=== PATIENT | male | born 1950 | race Caucasian/White ===

== ENCOUNTER 2018-06-28 10:29 | Inpatient (IN) | payer OTHER ==
[~2018-06-28] VITALS: Ht 182.9 cm; Wt 94.3 kg
[2018-06-28] MEDS ORDERED: NITROGLYCERIN 0.4 MG SL TAB SL ONE (10:41)
[2018-06-28 10:46] LABS: BASOPHILS % (AUTO) 2.4 % (0.0-5.0); EOSINOPHILS % (AUTO) 0.6 % (0.0-8.0); HEMATOCRIT 29.2 % (42-54); LYMPHOCYTES % (AUTO) 12.1 % (21.0-51.0); MEAN CORPUSCULAR HEMOGLOBIN 17.9 pg (27.0-33.0); MEAN CORPUSCULAR HGB CONC 29.6 g/dL (32.0-36.0); MEAN CORPUSCULAR VOLUME 60.5 fL (79-99); NEUTROPHILS % (AUTO) 77.9 % (40.0-77.0); NUCLEATED RED BLOOD CELLS 0.1 % (0.0-0.19); PLATELET COUNT (AUTO) 355 K/uL (130-400); RED BLOOD CELL COUNT(AUTO) 4.83 MIL/uL (4.50-6.20); RED CELL DISTRIBUTION WIDTH 21.1 % (11.0-15.5); WHITE BLOOD COUNT (AUTO) 8.5 K/uL (4.8-10.8)
[2018-06-28] MEDS ORDERED: FUROSEMIDE 10 MG/ML 2ML VIAL ONE (10:50)
[2018-06-28 10:52] LABS: CREATININE 1.4 mg/dL (0.5-1.5); POTASSIUM 4.2 mmol/L (3.5-5.1)
[2018-06-28 10:56] LABS: ALBUMIN 3.4 g/dL (3.5-5.0); BILIRUBIN,TOTAL 0.7 mg/dL (0.2-1.0); TOTAL PROTEIN, SERUM 7.5 g/dL (6.0-8.3)
[2018-06-28 10:59] LABS: INR 1.05 (0.85-1.15); PARTIAL THROMBOPLASTIN TIME 25.6 SEC (26.3-35.5)
[2018-06-28] MEDS ORDERED: SODIUM CHLORIDE 0.9% 250 ML IV ONE ×2 (12:04→14:26)
[2018-06-28] MEDS ORDERED: ONDANSETRON HCL 4 MG/2 ML VIAL IV PRN (16:30)
[2018-06-28] MEDS: FUROSEMIDE 10 MG/ML 4ML VIAL IVP SCH ×2 (16:30→22:00)
[2018-06-28] MEDS ORDERED: ACETAMINOPHEN 325 MG TAB PO PRN ×2 (16:30)
[2018-06-28] MEDS ORDERED: FUROSEMIDE 10 MG/ML 4ML VIAL ONE (18:15)
[2018-06-28] MEDS ORDERED: FAMOTIDINE/PF 20 MG/2 ML VIAL IV ONE (20:58)
[2018-06-28] MEDS: FAMOTIDINE/PF 20 MG/2 ML VIAL IV SCH (21:00)
[2018-06-28 22:20] LABS: HEMATOCRIT 28.6 % (42-54)
--- NOTE | 2018-06-28 22:50 | NUR ---
PT ARRIVED TO UNIT AT THIS TIME. REPORT WAS RECEIVED BY DHARMESH MCBRIDE. PT ABLE TO AMBULATE WITHOUT ASSIST. MINIMAL SOB NOTED. STATED FEELS ALOT BETTER AFTER BEING IN THE HOSPITAL. CAME IN DUE TO SOB FOR A WEEK. PT AAO3. PERRLA. NO EDEMA. CLEAR LUNG SOUNDS. ACTIVE BOWEL SOUNDS. LAST BM WAS 06/27. TARRY STOOLS NOTED. STATES DOES ACTIVELY BLEED AT TIMES DUE DIVERTICULITIS. MEDICATIONS REPORTED.
[2018-06-28 23:05] VITALS: BP 101/70
[2018-06-29] MEDS ORDERED: CARV6.25 PO (00:28)
[2018-06-29] MEDS ORDERED: ASPI-1197 PO (00:28)
[2018-06-29] MEDS ORDERED: AMIO200T5 PO (00:28)
[2018-06-29] MEDS ORDERED: CLOP75TA32 PO (00:28)
[2018-06-29] MEDS ORDERED: FURO40TA5 PO (00:28)
[2018-06-29] MEDS ORDERED: LOSA1TAB37 PO (00:28)
[2018-06-29 01:43] LABS: HEMATOCRIT 27.7 % (42-54)
--- NOTE | 2018-06-29 01:50 | NUR ---
REPORTED HG OF 8.6 TO Bruce CHAMBERS DUE TO ACTIVE BLEEDING ORDER TO INFUSE 1 UNIT OF RBC WITH HG OVER 8.
[2018-06-29] MEDS ORDERED: SODIUM CHLORIDE 0.9% 250 ML IV ONE (02:29)
--- NOTE | 2018-06-29 03:10 | NUR ---
BLOOD TRANSFUSION STARTED AT THIS TIME. PRE TRANSFUSION VITAL SIGNS ARE WNL. VITAL SIGNS DOCUMENTED ON TRANSFUSION SHEET. PT STATES NO PAIN. MINIMAL SOB AFTER AMBULATING TO RESTROOM. VERIFIED BLOOD PRODUCTS WITH ALLISON MCBRIDE.
[2018-06-29 03:44] VITALS: BP 113/66
[2018-06-29] MEDS: FUROSEMIDE 10 MG/ML 4ML VIAL IVP SCH ×3 (05:23→22:34)
[2018-06-29 07:00] VITALS: BP 137/85
[2018-06-29 08:29] LABS: HEMATOCRIT 34.4 % (42-54)
[2018-06-29] MEDS: FAMOTIDINE/PF 20 MG/2 ML VIAL IV SCH ×2 (10:51→20:54)
[2018-06-29 11:00] VITALS: BP 107/64
[2018-06-29] MEDS: ASPIRIN 81MG TAB.CHEW PO SCH (12:09)
[2018-06-29] MEDS: AMIODARONE HCL 200 MG TABLET PO SCH (12:09)
[2018-06-29] MEDS: CARVEDILOL 6.25 MG TABLET PO SCH ×2 (12:09→20:55)
[2018-06-29] MEDS: CLOPIDOGREL BISULFATE 75 MG TAB PO SCH (12:09)
[2018-06-29] MEDS: LOSARTAN/HYDROCHLOROTHIAZIDE 50-12.5MG TABLET PO SCH (12:10)
--- NOTE | 2018-06-29 13:45 | NUR ---
DC PLAN VISITED WITH PATIENT. PATIENT LIVES WITH SPOUSE. INDEPENDENT ABLE TO PERFORM ADL'S. PATIENT HAS NO SERVICES OR DME'S. FEELS SAFE TO RETURN HOME. Addendum: 06/29/18 at 1345 by CODY BRENNAN RN CM Amended: Links added.
--- NOTE | 2018-06-29 14:26 | NUR ---
RECEIVED CALL FROM DR. Ayaan LEE, REMINDED OF CONSULT. VERBALIZED BEING AWARE OF CONSULT, WILL BE IN LATER TODAY TO SEE PT.
[2018-06-29 16:00] VITALS: BP 106/60
--- NOTE | 2018-06-29 17:40 | NUR ---
Nutrition Intervention: Nutrition consult for CHF education. Pt. admitted with Dx of Acute systolic heart failure, acute pulm. edema. Pt. reports wt. has decreased by 33#(13% of UBW) within 4 months; reports wt. decrease is due to water loss. Pt. on Heart Healthy diet with good p.o. intake, as per pt. Labs reviewed(Alb 3.4). LBM: 06/29/18. SR-21, elastic. BMI: 29.2, overweight for age. Pt. educated on Heart Failure Eating Plan and provided with education material. Pt. verbalized understanding. Recommendations: 1) Continue current diet. 2) Heart Failure Eating Plan diet education given to patient. 3) Continue to monitor pt's nutritional status. 4) Consult RD as nutrition concerns arise. Addendum: 06/29/18 at [address] Amended: Links added.
[2018-06-29 19:31] VITALS: BP 105/57
[2018-06-29] MEDS ORDERED: CARVEDILOL 6.25 MG TABLET PO SCH (21:00)
[2018-06-29 23:38] VITALS: BP 105/63
[2018-06-30 03:26] VITALS: BP 109/57
[2018-06-30 04:04] LABS: HEMATOCRIT 33.4 % (42-54); MEAN CORPUSCULAR HEMOGLOBIN 18.8 pg (27.0-33.0); MEAN CORPUSCULAR HGB CONC 30.1 g/dL (32.0-36.0); MEAN CORPUSCULAR VOLUME 62.4 fL (79-99); NUCLEATED RED BLOOD CELLS 0.1 % (0.0-0.19); PLATELET COUNT (AUTO) 328 K/uL (130-400); RED BLOOD CELL COUNT(AUTO) 5.35 MIL/uL (4.50-6.20); RED CELL DISTRIBUTION WIDTH 23.2 % (11.0-15.5); WHITE BLOOD COUNT (AUTO) 8.7 K/uL (4.8-10.8)
[2018-06-30 04:08] LABS: ALBUMIN 3.3 g/dL (3.5-5.0); CREATININE 1.4 mg/dL (0.5-1.5); MAGNESIUM 2.1 mg/dL (1.80-2.40)
[2018-06-30 04:10] LABS: % IRON SATURATION 4.5 % (30-44)
[2018-06-30] MEDS ORDERED: POTASSIUM CHLORIDE 20MEQ/100ML 100 ML IV PRN (04:30)
[2018-06-30] MEDS ORDERED: POTASSIUM CHLORIDE 10% ELIXIR 20 MEQ/15 ML UDCUP PO PRN (04:30)
[2018-06-30] MEDS ORDERED: LIDOCAINE HCL-MPF 1% 2ML VIAL IVP PRN (04:30)
[2018-06-30] MEDS: POTASSIUM CHLORIDE 20 MEQ ERTAB PO PRN ×3 (04:33→15:24)
[2018-06-30 04:52] LABS: B-TYPE NATRIURETIC PEPTIDE 513 pg/mL (0-100)
[2018-06-30 07:00] VITALS: BP 116/51
[2018-06-30] MEDS ORDERED: LOSARTAN/HYDROCHLOROTHIAZIDE 50-12.5MG TABLET PO SCH (09:00)
[2018-06-30] MEDS ORDERED: CLOPIDOGREL BISULFATE 75 MG TAB PO SCH (09:00)
[2018-06-30] MEDS ORDERED: AMIODARONE HCL 200 MG TABLET PO SCH (09:00)
[2018-06-30] MEDS ORDERED: ASPIRIN 81MG TAB.CHEW PO SCH (09:00)
[2018-06-30] MEDS ORDERED: FUROSEMIDE 40 MG TABLET PO SCH (09:00)
[2018-06-30] MEDS: ASPIRIN 81MG TAB.CHEW PO SCH (09:43)
[2018-06-30] MEDS: AMIODARONE HCL 200 MG TABLET PO SCH (09:43)
[2018-06-30] MEDS: LOSARTAN/HYDROCHLOROTHIAZIDE 50-12.5MG TABLET PO SCH (09:43)
[2018-06-30] MEDS: CLOPIDOGREL BISULFATE 75 MG TAB PO SCH (09:44)
[2018-06-30] MEDS: CARVEDILOL 6.25 MG TABLET PO SCH (09:45)
[2018-06-30] MEDS: FAMOTIDINE/PF 20 MG/2 ML VIAL IV SCH (09:45)
[2018-06-30 11:00] VITALS: BP 106/58
[2018-06-30] MEDS ORDERED: FURO40TA5 PO (12:17)
--- NOTE | 2018-06-30 15:25 | NUR ---
HL REMOVED, CATHETER INTACT. DISCHARGE INSTRUCTIONS GIVEN, VERBALIZED UNDERSTANDING.
== END 2018-06-30 15:40 | disposition home or self-care (01) | DRG 291 ==
LOC: EDH 10:29 → EDHIP 16:21 → 2AH 22:53
PROVIDERS: ADMIT Internal Medicine; ATTEND Internal Medicine
PROC: 30233N1 Transfusion of Nonautologous Red Blood Cells into Peripheral Vein, Percutaneous Approach (ICD-10-PCS; principal; 2018-06-28)
DX: I11.0 Hypertensive heart disease with heart failure (principal); J96.01 Acute respiratory failure with hypoxia; D62 Acute posthemorrhagic anemia; I50.23 Acute on chronic systolic (congestive) heart failure; I25.10 Atherosclerotic heart disease of native coronary artery without angina pectoris; I25.2 Old myocardial infarction; Z85.828 Personal history of other malignant neoplasm of skin; Z95.5 Presence of coronary angioplasty implant and graft; Z95.0 Presence of cardiac pacemaker
CPT/HCPCS: 36415; 71045; 80048; 80053; 82040; 83540; 83550; 83690; 83735; 83880; 84484; 85014; 85018; 85025; 85027; 85610; 85730; 86850; 86900; 86901; 86922; 93005; 93306; 99291; G0378; J1940; J3490; J7030; P9016

== ENCOUNTER 2018-08-04 11:56 | Emergency (ER) | payer OTHER ==
[~2018-08-04 11:56] MED LIST: AMIO200T5 PO; ASPI-1197 PO; CARV6.25 PO; CLOP75TA32 PO; FURO40TA5 PO; LOSA1TAB37 PO
[2018-08-04 12:46] LABS: BASOPHILS % (AUTO) 1.4 % (0.0-5.0); EOSINOPHILS % (AUTO) 2.4 % (0.0-8.0); HEMATOCRIT 34.3 % (42-54); LYMPHOCYTES % (AUTO) 17.7 % (21.0-51.0); MEAN CORPUSCULAR HEMOGLOBIN 20.2 pg (27.0-33.0); MEAN CORPUSCULAR HGB CONC 30.3 g/dL (32.0-36.0); MEAN CORPUSCULAR VOLUME 66.5 fL (79-99); MONOCYTES % (AUTO) 11.1 % (3.0-13.0); NEUTROPHILS % (AUTO) 67.4 % (40.0-77.0); PLATELET COUNT (AUTO) 243 K/uL (130-400); RED BLOOD CELL COUNT(AUTO) 5.15 MIL/uL (4.50-6.20); RED CELL DISTRIBUTION WIDTH 26.1 % (11.0-15.5)
[2018-08-04 12:48] LABS: CREATININE 1.2 mg/dL (0.5-1.5); POTASSIUM 3.9 mmol/L (3.5-5.1)
[2018-08-04 12:55] LABS: ALBUMIN 3.3 g/dL (3.5-5.0); BILIRUBIN,TOTAL 0.4 mg/dL (0.2-1.0); TOTAL PROTEIN, SERUM 7.2 g/dL (6.0-8.3)
[2018-08-04 13:18] LABS: B-TYPE NATRIURETIC PEPTIDE 704 pg/mL (0-100)
[2018-08-04 14:02] LABS: APPEARANCE,URINE Clear (CLEAR); BILIRUBIN,URINE Negative (NEGATIVE); COLOR,URINE Yellow (YELLOW); GLUCOSE, URINE (UA) Negative (NEGATIVE); KETONES,URINE Negative (NEGATIVE); LEUKOCYTE ESTERASE ,URINE Trace (NEGATIVE); NITRATE,URINE Negative (NEGATIVE); OCCULT BLOOD,URINE Small (NEGATIVE); PH,URINE 5.5 (5.0-8.0); PROTEIN,URINE Negative (NEGATIVE)
[2018-08-04 14:05] LABS: BACTERIA,URINE Rare /HPF (None Seen); RBC,URINE 0-1 /HPF (0-1); SQUAMOUS EPITHELIAL CELL,UR Rare /HPF (0-2); WBC,URINE 0-1 /HPF (0-1)
[2018-08-04] MEDS ORDERED: LEVOFLOXACIN 500 MG/D5W 100 ML 100 ML ONE (16:14)
[2018-08-04] MEDS ORDERED: METRONIDAZOLE 500MG/100ML BAG 100 ML ONE (16:15)
[2018-08-04] MEDS ORDERED: DiphenhydrAMINE HCL 50 MG/ML VIAL ONE (17:57)
[2018-08-04] MEDS ORDERED: DiphenhydrAMINE HCL 50 MG/ML VIAL IV PRN (18:00)
[2018-08-04] MEDS ORDERED: FUROSEMIDE 10 MG/ML 4ML VIAL IV SCH (18:15)
[2018-08-04] MEDS ORDERED: POTASSIUM CHLORIDE 20 MEQ ERTAB PO SCH (18:15)
[2018-08-04] MEDS ORDERED: FUROSEMIDE 10 MG/ML 4ML VIAL ONE (18:29)
== END 2018-08-04 19:47 | disposition home or self-care (01) ==
LOC: EDH 11:56
DX: I11.0 Hypertensive heart disease with heart failure (principal); I50.43 Acute on chronic combined systolic (congestive) and diastolic (congestive) heart failure; K57.32 Diverticulitis of large intestine without perforation or abscess without bleeding; D64.89 Other specified anemias; I25.10 Atherosclerotic heart disease of native coronary artery without angina pectoris; I25.2 Old myocardial infarction; Z88.0 Allergy status to penicillin; Z88.1 Allergy status to other antibiotic agents; Z88.8 Allergy status to other drugs, medicaments and biological substances; Z88.6 Allergy status to analgesic agent
CPT/HCPCS: 36415; 71045; 74176; 80053; 81001; 82270; 82550; 83880; 84484; 85025; 86850; 86900; 86901; 93005; 96365; 96367; 96375; 99291; J1200; J1940; J1956; J3490

== ENCOUNTER 2020-07-07 08:14 | Inpatient (IN) | payer OTHER ==
[~2020-07-07] VITALS: Ht 180.3 cm; Wt 90.6 kg
[~2020-07-07 08:14] MED LIST changes: -AMIO200T5 PO; +AMIO200T6 PO
[2020-07-07 09:26] LABS: BASOPHILS % (AUTO) 0.7 % (0.0-5.0); EOSINOPHILS % (AUTO) 0.5 % (0.0-8.0); HEMATOCRIT 34.3 % (42-54); LYMPHOCYTES % (AUTO) 4.3 % (21.0-51.0); MEAN CORPUSCULAR HEMOGLOBIN 18.3 pg (27.0-33.0); MEAN CORPUSCULAR HGB CONC 27.1 g/dL (32.0-36.0); MEAN CORPUSCULAR VOLUME 67.7 fL (79-99); MONOCYTES % (AUTO) 7.1 % (3.0-13.0); NEUTROPHILS % (AUTO) 86.9 % (40.0-77.0); PLATELET COUNT (AUTO) 206 K/uL (130-400); RED BLOOD CELL COUNT(AUTO) 5.07 MIL/uL (4.50-6.20); WHITE BLOOD COUNT (AUTO) 6.1 K/uL (4.8-10.8)
[2020-07-07 09:34] LABS: ABG HCO3 20.4 mmol/L (21.0-28.0); ABG OXYGEN SATURATION 97.4 % (95.0-99.0); ABG PCO2 29 mmHg (35-48)
[2020-07-07 09:34] LABS: CREATININE 1.3 mg/dL (0.5-1.5); POTASSIUM 4.4 mmol/L (3.5-5.1)
[2020-07-07 09:36] LABS: INR 1.11 (0.85-1.15)
[2020-07-07 09:37] LABS: PARTIAL THROMBOPLASTIN TIME 25.1 SEC (26.3-35.5)
[2020-07-07 09:38] LABS: ALBUMIN 3.2 g/dL (3.5-5.0); BILIRUBIN,TOTAL 0.7 mg/dL (0.2-1.0); TOTAL PROTEIN, SERUM 6.9 g/dL (6.0-8.3)
[2020-07-07 09:44] LABS: B-TYPE NATRIURETIC PEPTIDE 962 pg/mL (0-100)
[2020-07-07] MEDS: FUROSEMIDE 20MG VIAL (10MG/ML) IV SCH ×2 (11:30→23:30)
[2020-07-07] MEDS ORDERED: ACETAMINOPHEN 325 MG TAB PO PRN ×2 (11:30)
[2020-07-07] MEDS ORDERED: ONDANSETRON HCL 4 MG/2 ML VIAL IV PRN (11:30)
[2020-07-07] MEDS ORDERED: LACTULOSE 20 GM/30 ML UDCUP PO PRN (11:30)
[2020-07-07] MEDS ORDERED: FUROSEMIDE 40MG VIAL (10MG/ML) ONE (12:11)
[2020-07-07] MEDS ORDERED: CEFTRIAXONE SODIUM 1 GM ONE (12:11)
[2020-07-07] MEDS ORDERED: AZITHROMYCIN 500MG+NS 250ML 250 ML IV ONE (12:11)
[2020-07-07] MEDS ORDERED: SODIUM CHLORIDE 0.9% 100 ML IV ONE (12:12)
[2020-07-07 15:32] LABS: HEMATOCRIT 34.2 % (42-54)
[2020-07-07 21:05] LABS: HEMATOCRIT 32.1 % (42-54)
[2020-07-07 23:17] LABS: APPEARANCE,URINE Clear (CLEAR); BILIRUBIN,URINE Negative (NEGATIVE); COLOR,URINE Yellow (YELLOW); GLUCOSE, URINE (UA) Negative (NEGATIVE); KETONES,URINE Negative (NEGATIVE); LEUKOCYTE ESTERASE ,URINE Trace (NEGATIVE); NITRATE,URINE Negative (NEGATIVE); OCCULT BLOOD,URINE Negative (NEGATIVE); PROTEIN,URINE Negative (NEGATIVE)
[2020-07-07 23:56] LABS: BACTERIA,URINE Few /HPF (None Seen); SQUAMOUS EPITHELIAL CELL,UR 0-2 /HPF (0-2)
[2020-07-08 07:43] LABS: BASOPHILS % (AUTO) 0.7 % (0.0-5.0); EOSINOPHILS % (AUTO) 1.8 % (0.0-8.0); HEMATOCRIT 35.6 % (42-54); LYMPHOCYTES % (AUTO) 7.4 % (21.0-51.0); MEAN CORPUSCULAR HEMOGLOBIN 18.5 pg (27.0-33.0); MEAN CORPUSCULAR HGB CONC 27.2 g/dL (32.0-36.0); MEAN CORPUSCULAR VOLUME 68.1 fL (79-99); MONOCYTES % (AUTO) 9.1 % (3.0-13.0); NEUTROPHILS % (AUTO) 80.5 % (40.0-77.0); PLATELET COUNT (AUTO) 217 K/uL (130-400); RED BLOOD CELL COUNT(AUTO) 5.23 MIL/uL (4.50-6.20)
[2020-07-08 08:04] LABS: CREATININE 1.3 mg/dL (0.5-1.5); POTASSIUM 3.8 mmol/L (3.5-5.1)
[2020-07-08 08:17] LABS: B-TYPE NATRIURETIC PEPTIDE 1020 pg/mL (0-100)
[2020-07-08 08:40] VITALS: BP 113/72
[2020-07-08] MEDS: PANTOPRAZOLE 40 MG/VIAL IV SCH (09:00)
[2020-07-08] MEDS ORDERED: FURO20TA4 PO (09:46)
[2020-07-08] MEDS ORDERED: TAMS-1 PO (09:46)
[2020-07-08] MEDS ORDERED: FERR324T PO (09:46)
[2020-07-08] MEDS ORDERED: LOSA50TA64 PO (09:46)
[2020-07-08] MEDS: FUROSEMIDE 20MG VIAL (10MG/ML) IV SCH ×2 (11:25→20:25)
[2020-07-08 12:00] VITALS: BP 132/69
[2020-07-08] MEDS: METRONIDAZOLE 500MG/100ML BAG 100 ML IVPB SCH ×2 (14:39→20:25)
[2020-07-08 16:00] VITALS: BP 107/58
[2020-07-08] MEDS: CARVEDILOL 6.25 MG TABLET PO SCH (20:25)
[2020-07-08 20:44] VITALS: BP 106/68
[2020-07-08 23:49] VITALS: BP 96/54
[2020-07-09 04:03] VITALS: BP 108/64
[2020-07-09] MEDS: METRONIDAZOLE 500MG/100ML BAG 100 ML IVPB SCH ×3 (04:15→22:14)
[2020-07-09 08:00] VITALS: BP 111/67
[2020-07-09] MEDS: LEVOFLOXACIN 750 MG/D5W 150 ML 150 ML IV SCH (08:11)
[2020-07-09] MEDS: PANTOPRAZOLE 40 MG/VIAL IV SCH (08:11)
[2020-07-09] MEDS: AMIODARONE HCL 200 MG TABLET PO SCH (08:20)
[2020-07-09] MEDS: LOSARTAN 25 MG TABLET PO SCH (08:20)
[2020-07-09] MEDS: SPIRONOLACTONE 25 MG TAB PO SCH (08:20)
[2020-07-09] MEDS: CARVEDILOL 6.25 MG TABLET PO SCH ×3 (08:20→20:28)
[2020-07-09] MEDS ORDERED: ASPIRIN 81MG TAB.CHEW PO SCH (09:00)
[2020-07-09] MEDS ORDERED: CLOPIDOGREL BISULFATE 75 MG TAB PO SCH (09:00)
[2020-07-09 09:43] LABS: BASOPHILS % (AUTO) 0.8 % (0.0-5.0); EOSINOPHILS % (AUTO) 1.8 % (0.0-8.0); HEMATOCRIT 34.7 % (42-54); LYMPHOCYTES % (AUTO) 5.7 % (21.0-51.0); MEAN CORPUSCULAR HGB CONC 28.2 g/dL (32.0-36.0); MEAN CORPUSCULAR VOLUME 67.2 fL (79-99); MONOCYTES % (AUTO) 11.1 % (3.0-13.0); PLATELET COUNT (AUTO) 204 K/uL (130-400); RED BLOOD CELL COUNT(AUTO) 5.16 MIL/uL (4.50-6.20); WHITE BLOOD COUNT (AUTO) 5.1 K/uL (4.8-10.8)
[2020-07-09 10:05] LABS: ALBUMIN 3.2 g/dL (3.5-5.0); BILIRUBIN,TOTAL 0.8 mg/dL (0.2-1.0); CREATININE 1.2 mg/dL (0.5-1.5); POTASSIUM 3.5 mmol/L (3.5-5.1); TOTAL PROTEIN, SERUM 6.9 g/dL (6.0-8.3)
[2020-07-09] MEDS: LACTATED RINGERS 1000ML 1,000 ML IV SCH (11:48)
[2020-07-09] MEDS: FUROSEMIDE 20MG VIAL (10MG/ML) IV SCH ×2 (11:48→23:24)
[2020-07-09 12:00] VITALS: BP 113/59
[2020-07-09 16:00] VITALS: BP 136/64
[2020-07-09 20:21] VITALS: BP 117/70
[2020-07-09 23:49] VITALS: BP 109/63
[2020-07-10 03:50] VITALS: BP 116/69
[2020-07-10] MEDS: METRONIDAZOLE 500MG/100ML BAG 100 ML IVPB SCH ×3 (06:10→22:06)
[2020-07-10 07:30] VITALS: BP 113/64
[2020-07-10 10:22] LABS: BASOPHILS % (AUTO) 0.6 % (0.0-5.0); LYMPHOCYTES % (AUTO) 6.4 % (21.0-51.0); MEAN CORPUSCULAR HEMOGLOBIN 18.5 pg (27.0-33.0); MEAN CORPUSCULAR HGB CONC 27.6 g/dL (32.0-36.0); MEAN CORPUSCULAR VOLUME 67.2 fL (79-99); MONOCYTES % (AUTO) 11.7 % (3.0-13.0); NEUTROPHILS % (AUTO) 78.7 % (40.0-77.0); PLATELET COUNT (AUTO) 240 K/uL (130-400); RED BLOOD CELL COUNT(AUTO) 5.51 MIL/uL (4.50-6.20); RED CELL DISTRIBUTION WIDTH 23.2 % (11.0-15.5); WHITE BLOOD COUNT (AUTO) 4.9 K/uL (4.8-10.8)
[2020-07-10] MEDS: LEVOFLOXACIN 750 MG/D5W 150 ML 150 ML IV SCH (10:37)
[2020-07-10] MEDS: PANTOPRAZOLE 40 MG/VIAL IV SCH (10:38)
[2020-07-10] MEDS: FUROSEMIDE 20MG VIAL (10MG/ML) IV SCH ×2 (10:41→23:27)
[2020-07-10] MEDS: CARVEDILOL 6.25 MG TABLET PO SCH ×2 (10:41→22:05)
[2020-07-10] MEDS: LOSARTAN 25 MG TABLET PO SCH (10:41)
[2020-07-10] MEDS: AMIODARONE HCL 200 MG TABLET PO SCH (10:41)
[2020-07-10] MEDS: SPIRONOLACTONE 25 MG TAB PO SCH (10:42)
[2020-07-10 11:30] VITALS: BP 118/66
[2020-07-10] MEDS: LACTATED RINGERS 1000ML 1,000 ML IV SCH (14:32)
[2020-07-10 16:31] VITALS: BP 98/58
[2020-07-10 20:00] VITALS: BP 111/69
[2020-07-11 00:13] VITALS: BP 105/64
[2020-07-11 04:05] LABS: HEMATOCRIT 35.7 % (42-54); LYMPHOCYTES % (AUTO) 9.7 % (21.0-51.0); MEAN CORPUSCULAR HEMOGLOBIN 18.9 pg (27.0-33.0); MEAN CORPUSCULAR HGB CONC 28.3 g/dL (32.0-36.0); MONOCYTES % (AUTO) 13.3 % (3.0-13.0); NEUTROPHILS % (AUTO) 72.6 % (40.0-77.0); PLATELET COUNT (AUTO) 237 K/uL (130-400); RED BLOOD CELL COUNT(AUTO) 5.33 MIL/uL (4.50-6.20); RED CELL DISTRIBUTION WIDTH 23.2 % (11.0-15.5)
[2020-07-11 04:31] LABS: ALBUMIN 3.3 g/dL (3.5-5.0); BILIRUBIN,TOTAL 0.7 mg/dL (0.2-1.0); CREATININE 1.3 mg/dL (0.5-1.5); POTASSIUM 3.5 mmol/L (3.5-5.1); TOTAL PROTEIN, SERUM 6.9 g/dL (6.0-8.3)
[2020-07-11 04:34] VITALS: BP 108/61
[2020-07-11] MEDS: METRONIDAZOLE 500MG/100ML BAG 100 ML IVPB SCH ×3 (06:39→20:54)
[2020-07-11 08:12] VITALS: BP 114/71
[2020-07-11] MEDS: CARVEDILOL 6.25 MG TABLET PO SCH ×2 (10:23→20:54)
[2020-07-11] MEDS: LEVOFLOXACIN 750 MG/D5W 150 ML 150 ML IV SCH (10:23)
[2020-07-11] MEDS: LOSARTAN 25 MG TABLET PO SCH (10:24)
[2020-07-11] MEDS: PANTOPRAZOLE 40 MG/VIAL IV SCH (10:24)
[2020-07-11] MEDS: SPIRONOLACTONE 25 MG TAB PO SCH (10:24)
[2020-07-11] MEDS: AMIODARONE HCL 200 MG TABLET PO SCH (10:24)
[2020-07-11] MEDS: FUROSEMIDE 20 MG TABLET PO SCH ×2 (10:26→20:53)
[2020-07-11 11:00] VITALS: BP 92/53
[2020-07-11 16:00] VITALS: BP 98/53
[2020-07-11 19:36] VITALS: BP 104/67
[2020-07-11] MEDS: LACTATED RINGERS 1000ML 1,000 ML IV SCH (23:30)
[2020-07-12] VITALS: BP 99/62
[2020-07-12 04:00] VITALS: BP 103/63
[2020-07-12 04:17] LABS: EOSINOPHILS % (AUTO) 3.3 % (0.0-8.0); HEMATOCRIT 35.1 % (42-54); LYMPHOCYTES % (AUTO) 9.4 % (21.0-51.0); MEAN CORPUSCULAR HEMOGLOBIN 18.8 pg (27.0-33.0); MEAN CORPUSCULAR HGB CONC 28.2 g/dL (32.0-36.0); MEAN CORPUSCULAR VOLUME 66.5 fL (79-99); MONOCYTES % (AUTO) 13.2 % (3.0-13.0); NEUTROPHILS % (AUTO) 72.7 % (40.0-77.0); PLATELET COUNT (AUTO) 240 K/uL (130-400); RED BLOOD CELL COUNT(AUTO) 5.28 MIL/uL (4.50-6.20); RED CELL DISTRIBUTION WIDTH 23.1 % (11.0-15.5); WHITE BLOOD COUNT (AUTO) 4.8 K/uL (4.8-10.8)
[2020-07-12 04:33] LABS: ALBUMIN 3.1 g/dL (3.5-5.0); BILIRUBIN,TOTAL 0.5 mg/dL (0.2-1.0); CREATININE 1.2 mg/dL (0.5-1.5); POTASSIUM 3.4 mmol/L (3.5-5.1); TOTAL PROTEIN, SERUM 6.7 g/dL (6.0-8.3)
[2020-07-12] MEDS: METRONIDAZOLE 500MG/100ML BAG 100 ML IVPB SCH (06:31)
[2020-07-12 08:00] VITALS: BP 111/68
[2020-07-12] MEDS: PANTOPRAZOLE 40 MG/VIAL IV SCH (09:40)
[2020-07-12] MEDS: SPIRONOLACTONE 25 MG TAB PO SCH (09:41)
[2020-07-12] MEDS: CARVEDILOL 6.25 MG TABLET PO SCH (09:42)
[2020-07-12] MEDS: LOSARTAN 25 MG TABLET PO SCH (09:43)
[2020-07-12] MEDS: FUROSEMIDE 20 MG TABLET PO SCH (09:43)
[2020-07-12] MEDS: AMIODARONE HCL 200 MG TABLET PO SCH (09:43)
[2020-07-12] MEDS: LEVOFLOXACIN 750 MG/D5W 150 ML 150 ML IV SCH (09:45)
[2020-07-12] MEDS ORDERED: LEVO750T46 PO (10:57)
[2020-07-12] MEDS ORDERED: CARV6.2579 PO (10:57)
[2020-07-12] MEDS ORDERED: LOSA25TA2 PO (10:57)
[2020-07-12] MEDS ORDERED: METR500T PO (10:57)
[2020-07-12] MEDS ORDERED: SPIR25TA PO (10:57)
[2020-07-12 11:56] VITALS: BP 107/63
== END 2020-07-12 14:50 | disposition home or self-care (01) | DRG 377 ==
LOC: EDH 08:14 → OBSVTOIN 11:24 → EDHIP 11:24 → 4AH 07-08 08:32
PROVIDERS: ADMIT Internal Medicine; ATTEND Internal Medicine
DX: K57.33 Diverticulitis of large intestine without perforation or abscess with bleeding (principal); I50.23 Acute on chronic systolic (congestive) heart failure; I42.0 Dilated cardiomyopathy; I11.0 Hypertensive heart disease with heart failure; K59.00 Constipation, unspecified; I25.10 Atherosclerotic heart disease of native coronary artery without angina pectoris; K80.20 Calculus of gallbladder without cholecystitis without obstruction; D64.9 Anemia, unspecified; Z95.0 Presence of cardiac pacemaker; Z88.0 Allergy status to penicillin; Z88.8 Allergy status to other drugs, medicaments and biological substances; I25.2 Old myocardial infarction; Z95.5 Presence of coronary angioplasty implant and graft; Z85.828 Personal history of other malignant neoplasm of skin
CPT/HCPCS: 36415; 36600; 71045; 74176; 80048; 80053; 81001; 82270; 82550; 82803; 83690; 83880; 84484; 85014; 85018; 85025; 85610; 85730; 86850; 86900; 86901; 86923; 87040; 93005; 93306; 93356; C9113; G0378; J0456; J0696; J1940; J1956; J3490; J7120